=== PATIENT | male | born 1975 | race Hispanic/Latino ===

== ENCOUNTER 2019-05-06 15:15 | Outpatient (CLI) | payer OTHER ==
--- NOTE | 2019-05-06 15:27 | RAD ---
XR Chest Pa Lat STANDARD HISTORY: Cough COMPARISON: 10/09/2016 FINDINGS: The heart size is normal. The lungs are well expanded without focal areas of consolidation, pneumothorax or pleural effusions. The large hiatal hernia is again seen. IMPRESSION: 1. No radiographic evidence of acute cardiopulmonary process. 2. Large hiatal hernia
== END 2019-05-06 15:16 | disposition home or self-care (01) ==
LOC: RAD-FRANK 15:15
PROVIDERS: ATTEND Nurse Practitioner Family
DX: J40 Bronchitis, not specified as acute or chronic (principal); K44.9 Diaphragmatic hernia without obstruction or gangrene
CPT/HCPCS: 71046